=== PATIENT | male | born 1980 | race American Indian/Alaskan Native ===

== ENCOUNTER 2018-07-09 08:23 | Emergency (ER) | payer OTHER ==
[2018-07-09 08:42] VITALS: BP 160/99
--- NOTE | 2018-07-09 10:00 | Emergency Department Report ---
ED Headache HPI - General Chief Complaint: Dizziness Stated Complaint: HEADACHE Time Seen by Provider: 07/09/18 09:14 - History of Present Illness Initial Comments: Mr. Moraes is a healthy 37-year-old male who presents with headache for the past month. He has nausea and dizziness. Headache is severe all day every day. Pain headache is a migrating type headache. Sometimes the headache is located at the vertex. Sometimes the headache is located in the occipital region. Sometimes the headache is frontal. Dull aching headache. Denies photophobia. Denies phonophobia. He initially thought the symptoms were related to sinusitis and dental infections. He was evaluated by his assigned PCP according to his insurance, when [facility]. He has had 2 courses of antibiotics. The only medication which have seemed to help the headaches were iron tablets. He also was evaluated at [facility] urgent care. Also evaluated by my colleague here in the ED 8 days ago with lab work and CT scan. He has a urologist neurologist appointment on Wednesday in [facility]. His is concerned for elevated blood pressure. His blood pressure readings have been consistently elevated with each visit to the clinic. Father and sister both have hypertension. Sister developed hypertension in her 20s. He did play football at the semi-pro level. He does recall one concussion which was not diagnosed officially. Aafter directed contact with his head with a ill fitting helmet he had ringing and unsteady gait. He was also an amateur boxer for 5-6 years. He does not recall any significant head trauma. Patient does not smoke tobacco use, denies use of recreational drugs. He drinks alcohol occasionally. He has 5 children. He works as a city driver short hauls Father has a history of hypertension Alzheimer's dementia sleep apnea. Allergies/Adverse Reactions: Allergies No Known Allergies Allergy (Unverified 06/20/14 14:45) Home Medications: Ambulatory Orders Amoxicillin/K Clav Tab [Augmentin 875MG] 1 tab PO BID #20 tablet 06/20/14 Fluticasone Propionate [Flonase] 2 sprays NS QDAY #1 bottle 06/20/14 Ibuprofen [Motrin] 600 mg PO Q8H PRN #50 tablet 06/20/14 Loratadine [Claritin] 10 mg PO DAILY #30 tablet 06/20/14 Promethazine /Codeine [Phenergan/Codeine 6.25-10 mg/5 ml] 5 ml PO Q6H PRN #150 ml 06/20/14 predniSONE [Deltasone] 50 mg PO QDAY #5 tab 06/20/14 HYDROcodone/APAP 5-325 [[place] 5/325] 1 - 2 each PO Q6HR PRN #14 tablet 07/01/18 Metoclopramide [Reglan] 10 mg PO QID PRN #30 tab 07/01/18 diphenhydrAMINE [Benadryl CAP] 50 mg PO Q6HR PRN #30 capsule 07/01/18 Lisinopril [Prinivil] 10 mg PO DAILY 30 Days #30 tablet 07/09/18 ED Review of Systems ROS: Stated complaint: HEADACHE Other details as noted in HPI Comment: All other systems reviewed and negative Constitutional: denies: fever, malaise Respiratory: denies: cough Cardiovascular: denies: chest pain ED Past Medical Hx - Past Medical History Hx Hypertension: Yes - Surgical History Past Surgical History?: Yes Additional Surgical History: left patella tendon repair. right rotator cuff repair - Family History Family history: hypertension - Social History Smoking Status: Never Smoker Substance Use Type: Alcohol - Medications Home Medications: Home Medications Medication Instructions Recorded Confirmed Last Taken Type Amoxicillin/K Clav Tab [Augmentin 1 tab PO BID #20 tablet 06/20/14 Unknown Rx 875MG] Fluticasone Propionate [Flonase] 2 sprays NS QDAY #1 bottle 06/20/14 Unknown Rx Ibuprofen [Motrin] 600 mg PO Q8H PRN #50 tablet 06/20/14 Unknown Rx Loratadine [Claritin] 10 mg PO DAILY #30 tablet 06/20/14 Unknown Rx Promethazine /Codeine 5 ml PO Q6H PRN #150 ml 06/20/14 Unknown Rx [Phenergan/Codeine 6.25-10 mg/5 ml] predniSONE [Deltasone] 50 mg PO QDAY #5 tab 06/20/14 Unknown Rx HYDROcodone/APAP 5-325 [[place] 1 - 2 each PO Q6HR PRN #14 tablet 07/01/18 Unknown Rx 5/325] Metoclopramide [Reglan] 10 mg PO QID PRN #30 tab 07/01/18 Unknown Rx diphenhydrAMINE [Benadryl CAP] 50 mg PO Q6HR PRN #30 capsule 07/01/18 Unknown Rx Lisinopril [Prinivil] 10 mg PO DAILY 30 Days #30 tablet 07/09/18 Unknown Rx ED Physical Exam - General Limitations: No Limitations General appearance: alert, in no apparent distress, other (appears healthy, appears comfortable) - Head Head exam: Present: atraumatic, normocephalic - Eye Eye exam: Present: normal appearance. Absent: scleral icterus, conjunctival injection - ENT ENT exam: Present: mucous membranes moist - Neck Neck exam: Present: normal inspection, full ROM. Absent: tenderness, meningismus - Respiratory Respiratory exam: Present: normal lung sounds bilaterally. Absent: respiratory distress, wheezes, rales, rhonchi, stridor - Cardiovascular Cardiovascular Exam: Present: regular rate, normal rhythm, normal heart sounds. Absent: systolic murmur, diastolic murmur, rubs, gallop - GI/Abdominal GI/Abdominal exam: Present: soft, normal bowel sounds. Absent: distended, tenderness, guarding, rebound - Rectal Rectal exam: Present: deferred - Extremities Exam Extremities exam: Present: normal inspection - Back Exam Back exam: Present: normal inspection - Neurological Exam Neurological exam: Present: alert, oriented X3 - Psychiatric Psychiatric exam: Present: normal affect, normal mood - Skin Skin exam: Present: warm, dry, intact, normal color. Absent: rash ED Course Vital Signs 07/09/18 08:38 Temperature 98.4 F Pulse Rate 54 L Respiratory 18 Rate Blood Pressure 160/99 O2 Sat by Pulse 96 Oximetry ED Medical Decision Making - EKG Data Interpretation: no acute changes 07/09/18 09:57 EKG obtained 0846 Sinus bradycardia rate 55 beats a minute normal axis normal QT interval right bundle branch block no ST elevation or signs of pericarditis - Medical Decision Making 1 month of headache: With the type of headache I suspect a secondary cause instead of a primary headache. Headache is not typical for cavernous sinus thrombosis, subarachnoid hemorrhage, meningitis, migraine headache, tension headache, cluster headache. Will treat elevated blood pressure with lisinopril. I did see patient did have slightly elevated creatinine 1.6. Unknown cause at this time. However with normal BUN I suspect chronic kidney injury possibly due to untreated hypertension. I strongly encouraged to accompany her to the neurologist shanthi gilmore which is scheduled in 4 days on Wednesday. I also provided a referral to outpatient medical physician. Critical care attestation.: If time is entered above; I have spent that time in minutes in the direct care of this critically ill patient, excluding procedure time. ED Disposition Clinical Impression: Headache, Elevated blood pressure reading, Elevated serum creatinine Disposition: TO HOME OR SELFCARE Is pt being admited?: No Does the pt Need Aspirin: No Condition: Stable Instructions: Acute Headache (ED) Additional Instructions: Please take your lab and CT results to your new PCP and neurologist. Your blood pressure reading today is 160/99 Prescriptions: Lisinopril [Prinivil] 10 mg PO DAILY 30 Days #30 tablet Referrals: CATARINA BIGGS MD [Staff Physician] - 3-5 Days
== END 2018-07-09 11:09 | disposition home or self-care (01) ==
LOC: ED 08:23
DX: I10 Essential (primary) hypertension (principal); R79.89 Other specified abnormal findings of blood chemistry
CPT/HCPCS: 93005; 93010; 99282

== ENCOUNTER 2019-06-24 10:11 | Emergency (ER) | payer SELFPAY ==
[2019-06-24 13:14] VITALS: BP 138/93
[2019-06-24] MEDS ORDERED: SODIUM CHLORIDE 0.9% 1000 ML 1,000 ML IV ONE (13:25)
[2019-06-24] MEDS ORDERED: ONDANSETRON 4 MG/2 ML INJ IV ONE (13:26)
--- NOTE | 2019-06-24 13:40 | Emergency Department Report ---
ED N/V/D HPI - General Chief complaint: Pain General Stated complaint: WEAK/DEHYDRATED/CHILLS Time Seen by Provider: 06/24/19 13:18 Source: patient Mode of arrival: Ambulatory Limitations: No Limitations - History of Present Illness Initial comments: 38 yo male c/o vomiting and diarrhea x 2 days. States he's unable to keep fluids down. Last vomit last night, 2 episodes of diarrhea today. C/o generalized weakness, fatigue, nausea and chills. He denies abdominal pain, and fever. MD complaint: nausea, vomiting, diarrhea -: Sudden Description of Vomiting: watery Description of Diarrhea: water Associated Abdominal Pain: No Radiation: none Improves with: none Worsens with: eating Associated Symptoms: myalgias, loss of appetite, malaise, nausea/vomiting. denies: chest pain, cough, diaphoresis, headaches, rash, shortness of breath, syncope, weakness, other - Related Data Previous Rx's Medication Instructions Recorded Last Taken Type Amoxicillin/K Clav Tab [Augmentin 1 tab PO BID #20 tablet 06/20/14 Unknown Rx 875MG] Fluticasone Propionate [Flonase] 2 sprays NS QDAY #1 bottle 06/20/14 Unknown Rx Ibuprofen [Motrin] 600 mg PO Q8H PRN #50 tablet 06/20/14 Unknown Rx Loratadine (Nf) [Claritin] 10 mg PO DAILY #30 tablet 06/20/14 Unknown Rx Promethazine /Codeine 5 ml PO Q6H PRN #150 ml 06/20/14 Unknown Rx [Phenergan/Codeine 6.25-10 mg/5 ml] predniSONE [Deltasone] 50 mg PO QDAY #5 tab 06/20/14 Unknown Rx HYDROcodone/APAP 5-325 [[place] 1 - 2 each PO Q6HR PRN #14 tablet 07/01/18 Unknown Rx 5/325] Metoclopramide [Reglan] 10 mg PO QID PRN #30 tab 07/01/18 Unknown Rx diphenhydrAMINE [Benadryl CAP] 50 mg PO Q6HR PRN #30 capsule 07/01/18 Unknown Rx lisinopriL [Prinivil] 10 mg PO DAILY 30 Days #30 tablet 07/09/18 Unknown Rx Ondansetron [Zofran Odt] 4 mg PO Q8HR PRN 3 Days #12 12/28/19 Unknown Rx tab.rapdis Allergies Allergy/AdvReac Type Severity Reaction Status Date / Time No Known Allergies Allergy Unverified 06/20/14 14:45 ED Review of Systems ROS: Stated complaint: WEAK/DEHYDRATED/CHILLS Other details as noted in HPI Comment: All other systems reviewed and negative Constitutional: chills, malaise, weakness. denies: diaphoresis Respiratory: denies: cough, shortness of breath, SOB with exertion, wheezing Cardiovascular: denies: chest pain, palpitations, dyspnea on exertion Gastrointestinal: nausea, vomiting, diarrhea. denies: abdominal pain, constipation, hematemesis, melena Genitourinary: denies: dysuria Skin: denies: rash Neurological: denies: headache ED Past Medical Hx - Past Medical History Hx Hypertension: Yes - Surgical History Additional Surgical History: left patella tendon repair. right rotator cuff repair - Social History Smoking Status: Never Smoker Substance Use Type: Alcohol - Medications Home Medications: Home Medications Medication Instructions Recorded Confirmed Last Taken Type Amoxicillin/K Clav Tab [Augmentin 1 tab PO BID #20 tablet 06/20/14 Unknown Rx 875MG] Fluticasone Propionate [Flonase] 2 sprays NS QDAY #1 bottle 06/20/14 Unknown Rx Ibuprofen [Motrin] 600 mg PO Q8H PRN #50 tablet 06/20/14 Unknown Rx Loratadine (Nf) [Claritin] 10 mg PO DAILY #30 tablet 06/20/14 Unknown Rx Promethazine /Codeine 5 ml PO Q6H PRN #150 ml 06/20/14 Unknown Rx [Phenergan/Codeine 6.25-10 mg/5 ml] predniSONE [Deltasone] 50 mg PO QDAY #5 tab 06/20/14 Unknown Rx HYDROcodone/APAP 5-325 [[place] 1 - 2 each PO Q6HR PRN #14 tablet 07/01/18 Unknown Rx 5/325] Metoclopramide [Reglan] 10 mg PO QID PRN #30 tab 07/01/18 Unknown Rx diphenhydrAMINE [Benadryl CAP] 50 mg PO Q6HR PRN #30 capsule 07/01/18 Unknown Rx lisinopriL [Prinivil] 10 mg PO DAILY 30 Days #30 tablet 07/09/18 Unknown Rx Ondansetron [Zofran Odt] 4 mg PO Q8HR PRN 3 Days #12 06/24/19 Unknown Rx tab.rapdis ED Physical Exam - General Limitations: No Limitations General appearance: alert, in no apparent distress - Head Head exam: Present: atraumatic - Eye Eye exam: Present: normal appearance - ENT ENT exam: Present: normal exam, mucous membranes dry, TM's normal bilaterally - Neck Neck exam: Present: normal inspection. Absent: meningismus - Respiratory Respiratory exam: Present: normal lung sounds bilaterally. Absent: respiratory distress, wheezes, rales, rhonchi - Cardiovascular Cardiovascular Exam: Present: regular rate, normal heart sounds - GI/Abdominal GI/Abdominal exam: Present: soft, hyperactive bowel sounds. Absent: distended, tenderness, guarding - exam: Present: normal inspection - Extremities Exam Extremities exam: Present: normal inspection - Back Exam Back exam: Present: normal inspection - Neurological Exam Neurological exam: Present: alert, oriented X3, normal gait - Psychiatric Psychiatric exam: Present: normal affect - Skin Skin exam: Present: warm, dry, intact, normal color. Absent: rash ED Course Vital Signs 06/24/19 13:13 Temperature 98.1 F Pulse Rate 74 Respiratory 16 Rate Blood Pressure 138/93 [Right] O2 Sat by Pulse 98 Oximetry ED Medical Decision Making - Lab Data Result diagrams: 06/24/19 13:34 06/24/19 13:34 - Medical Decision Making 38 yo male with vomiting and diarrhea x 2 day. Given 1 liter ns Labs with no acute findings Na 146, K+ 3.6 Cl 101 No vomiting no diarrhea while in the ER VSS, All findings discussed with patient. Rest increase oral hydration. BRAT diet Critical care attestation.: If time is entered above; I have spent that time in minutes in the direct care of this critically ill patient, excluding procedure time. ED Disposition Clinical Impression: Gastroenteritis, Vomiting and diarrhea Disposition: DC-01 TO HOME OR SELFCARE Is pt being admited?: No Does the pt Need Aspirin: No Condition: Stable Instructions: Gastroenteritis (ED) Additional Instructions: Ste[place]s diet, stay hydrated drink 8-10 glasses of fluids. Stay away from diary products until your symptoms resolved. Return to ER for Fever and Abdominal pain Prescriptions: Ondansetron [Zofran Odt] 4 mg PO Q8HR PRN 3 Days #12 tab.rapdis PRN Reason: Nausea And Vomiting Referrals: CAT [facility]ESSER [Other] - 3-5 Days Time of Disposition: 16:10
[2019-06-24 13:49] LABS: Hematocrit 48.6 % (35.5-45.6); Hemoglobin 16.2 gm/dl (11.8-15.2); Mean Corpuscular HGB Conc 33 % (32-34); Mean Corpuscular Volume 88 fl (84-94); Platelet Count 158 K/mm3 (140-440); Red Blood Count 5.54 M/mm3 (3.65-5.03); Red Cell Distribution Width 13.1 % (13.2-15.2)
[2019-06-24 14:09] LABS: Alanine Aminotransferase 23 units/L (7-56); Albumin 4.2 g/dL (3.9-5); BUN/Creatinine Ratio 7; Blood Urea Nitrogen 10 mg/dL (9-20); Calcium 8.2 mg/dL (8.4-10.2); Hemolysis Index 16
== END 2019-06-24 16:23 | disposition home or self-care (01) ==
LOC: ED 10:11
DX: K52.9 Noninfective gastroenteritis and colitis, unspecified (principal); I10 Essential (primary) hypertension; F10.10 Alcohol abuse, uncomplicated; Z79.899 Other long term (current) drug therapy
CPT/HCPCS: 36415; 80053; 83690; 85027; 96361; 96374; 99283; J2405; J7030